=== PATIENT | female | born 1960 | race Caucasian/White ===

== ENCOUNTER 2022-01-08 09:31 | Emergency (ER) | payer BC | END 2022-01-08 11:20 | disposition home or self-care (01) | LOC: JP.ED 09:31 | DX: B34.9 Viral infection, unspecified (principal); Z20.822 Contact with and (suspected) exposure to COVID-19 | CPT/HCPCS: 99281; 99283; U0002 ==

== ENCOUNTER 2023-05-03 06:36 | Day surgery (SDC) | payer BC ==
[2023-05-03] MEDS ORDERED: Bupivacaine 0.5% 50 ML MDV ONE (06:41)
[2023-05-03] MEDS ORDERED: Lidocaine 1% with EPINEPHrine 1:100,000 50 ML MDV ONE (06:41)
[2023-05-03] MEDS ORDERED: fentaNYL 100 MCG/2 ML SDV ONE (07:07)
[2023-05-03] MEDS ORDERED: Propofol 200 MG/20 ML SDV ONE ×2 (07:07→08:22)
[2023-05-03] MEDS ORDERED: Midazolam 1 MG/ML 2 ML SDV ONE (07:08)
[2023-05-03] MEDS ORDERED: Sodium Chloride 0.9% 1,000 ML IV SCH (07:45)
[2023-05-03] MEDS ORDERED: ceFAZolin 2 GM in Sodium Chloride 0.9% 100 ML IV ONE (08:00)
[2023-05-03] MEDS ORDERED: ceFAZolin 2 GM in Premix Bag 1 BAG IV ONE (08:00)
[2023-05-03 10:05] VITALS: BP 126/66; PULSE 60
== END 2023-05-03 10:25 | disposition home or self-care (01) ==
LOC: JP.SDS 06:36
PROVIDERS: ATTEND Surgery
DX: D17.0 Benign lipomatous neoplasm of skin and subcutaneous tissue of head, face and neck (principal); F33.42 Major depressive disorder, recurrent, in full remission; H91.90 Unspecified hearing loss, unspecified ear; N83.209 Unspecified ovarian cyst, unspecified side; E04.2 Nontoxic multinodular goiter; Z79.899 Other long term (current) drug therapy
CPT/HCPCS: 88304; J0690; J2250; J2704; J3010; J3490; J7030